=== PATIENT | female | born 1935 | race Caucasian/White ===

== ENCOUNTER 2016-12-15 03:03 | Emergency (ER) | payer OTHER ==
[~2016-12-15] VITALS: Ht 165.1 cm; Wt 54.4 kg
[~2016-12-15 03:03] MED LIST: ASPI-231 PO; CLON2TAB PO; FURO20TA PO; TRIH2TAB3 PO; WARF2TAB55 PO
[2016-12-15] MEDS ORDERED: DILTIAZEM HCL 25 MG/5 ML VIAL IV ONE ×2 (03:30→05:00)
[2016-12-15 03:46] LABS: Basophils # (auto) 0 uL; Basophils % (auto) 0.4 % (0.0-2.0); Eosinophils # (auto) 0.1 uL; Eosinophils % (auto) 1.4 % (0.0-7.0); Hematocrit 40.1 % (36.0-46.0); Lymphocytes # (auto) 1.6 uL; Lymphocytes % (auto) 16.8 % (10.0-50.0); Mean Corpuscular Hemoglobin 28.6 pg (28.0-32.0); Mean Corpuscular Hgb Conc. 32.5 g/dL (32.0-36.0); Mean Corpuscular Volume 87.9 fL (80.0-100.0); Mean Platelet Volume 9.1 fL (7.4-10.4); Monocytes # (auto) 0.5 uL; Monocytes % (auto) 5.8 % (0.0-12.0); Neutrophils % (auto) 75.6 % (37.0-80.0); Platelet Count (auto) 365 10^3/uL (140-450); Red Cell Distribution Width 16.3 % (11.6-16.0); White Blood Cell 9.3 10^3/uL (4.4-10.8)
[2016-12-15 04:08] LABS: Albumin 2.3 g/dL (3.4-5.0); Anion Gap 10 (5-15); Aspartate Aminotransferase 44 U/L (15-37); BUN/Creatinine Ratio 22.4; Blood Urea Nitrogen 24 mg/dL (7-18); Calcium 7.7 mg/dL (8.5-10.1); Carbon Dioxide 21 mmol/L (21-32); Chloride 110 mmol/L (98-107); GFR African American 63 mL/min; GFR Non-African American 52 mL/min; Glucose 130 mg/dL (74-106); Magnesium 2.3 mg/dL (1.6-2.6); Potassium 3.7 mmol/L (3.5-5.1); Sodium 141 mmol/L (136-145)
[2016-12-15 04:13] LABS: Alkaline Phosphatase 115 U/L (45-117); Bilirubin, Total 0.6 mg/dL (0.2-1.0); Total Protein 6.5 g/dL (6.4-8.2)
[2016-12-15 04:19] LABS: Partial Thromboplastin Time 25.2 sec (22.64-33.71); Prothrombin Time 11.9 sec (9.37-12.3)
[2016-12-15 04:29] LABS: B-Type Natriuretic Peptide 504.59 pg/mL (0-100); INR 1.16 (0.9-1.15); Temperature: 22.3 C (20.0-25.0)
[2016-12-15] MEDS ORDERED: DILTIAZEM HCL 60 MG TAB PO ONE (05:30)
[2016-12-15 07:11] LABS: Urine Bilirubin Negative (Negative); Urine Blood 1+ /uL (Negative); Urine Color Yellow (Yellow); Urine Glucose Normal (Normal); Urine Ketone Negative (Negative); Urine Mucus FEW (None Seen); Urine Nitrite Negative (Negative); Urine RBC 78 /hpf (0 - 4); Urine Squamous Epithelial Cell FEW /hpf (<5); Urine Triple Phosphate Crystal FEW /hpf (None Seen); Urine Urobilinogen Normal (Negative); Urine pH 8.5 (5.0-8.0)
[2016-12-15] MEDS ORDERED: LEVOFLOXACIN 500MG 100 ML IV ONE (07:15)
[2016-12-15 11:13] VITALS: BP 145/78
== END 2016-12-15 12:29 | disposition home or self-care (01) ==
LOC: EDBD 03:03 → ER 03:08
DX: I48.0 Paroxysmal atrial fibrillation (principal); I11.0 Hypertensive heart disease with heart failure; I50.9 Heart failure, unspecified; J44.9 Chronic obstructive pulmonary disease, unspecified; Z86.711 Personal history of pulmonary embolism; Z86.718 Personal history of other venous thrombosis and embolism
CPT/HCPCS: 36415; 71010; 80053; 81001; 83735; 83880; 84443; 84484; 85025; 85610; 85730; 87086; 93005; 96365; 96375; 96376; 99291; J1956; 87088; 87186